=== PATIENT | male | born 2000 | race Caucasian/White ===

== ENCOUNTER 2021-03-21 02:55 | Emergency (ER) | payer OTHER, SELFPAY ==
[2021-03-21] VITALS (7 sets, daily range): BP systolic 107–145; BP diastolic 55–122; PULSE 62–102; RESP 16–19; TEMP 36.9–37; O2SAT 97–99; BMI 23.1
--- NOTE | 2021-03-21 03:24 | HMH.EDGENADL ---
ED Disposition Clinical Impression: Elbow dislocation Qualifiers: Encounter type: initial encounter Laterality: left Qualified Code(s): S53.105A - Unspecified dislocation of left ulnohumeral joint, initial encounter Disposition: Home, Self-Care Condition on Discharge: Good Instructions: How to Use a Sling, DI for Elbow Dislocation, How to Take Care of Your Splint, DI for Moderate Sedation Additional Instructions: Keep splint and sling on until seen by orthopedics. Ice 20 minutes 4-5 times per day. Percocet as needed for pain. Call Dr. Nava on Monday, orthopedics, for follow-up appointment, to be seen within 1 week. Additional instructions for CONTROLLED SUBSTANCES: You have been prescribed a medication that is a controlled substance. Controlled substances include pain medications known as opiates and sedative nerve medications known as benzodiazepines. Tramadol, fioricet, and gabapentin are also controlled substances. Some common opiates include: Codeine (such as Tylenol #3) Hydrocodone (Vicodin, Lortab, Lorcet, [place]) Oxycodone (Percocet, Percodan, Oxycodone, Oxy IR) Some common benzodiazepines include: Diazepam (Valium) Lorazepam (Ativan) Alprazolam (Xanax) Clonazepam (Klonopin) Oxazepam (Serax) All of these controlled substances are highly addictive and frequently abused. Misuse can and frequently does lead to addiction as well as overdose and . Medication should be stored in a locked cabinet or other secure storage unit. Do not store the medication in a motor vehicle. Short term supplies, 3 days or less, are prescribed because of the highly addictive nature of the medication. Any of the controlled substance medication NOT taken should be disposed of properly and NOT SAVED. The recommended method of disposing of unused medications is: Place the medicines in a sealable plastic bag. If the medicine is a solid, crush it or add water to dissolve it. Add something undesirable (cat litter, coffee grounds, etc.) Dispose of sealed bag in household trash Do not flush or pour unused medicines down a sink or drain. Controlled substances should not be shared, given away or sold. Because of the addictive nature and frequent abuse, these medications are sometimes stolen. These medications should be kept in a safe place where they cannot be stolen. Do not keep them in your car or purse. Lost or stolen prescriptions for controlled substances WILL NOT BE REFILLED in this emergency department, regardless of whether a police report was filed. Prescriptions: Oxycodone HCl/Acetaminophen [Percocet 5/325mg tablet] 1 tab PO Q6HP PRN #12 tab PRN Reason: Moderate To Severe Pain Transmission Status: Sent to [facility] Referrals: Provider,Referral, [Referring] - Yvon Nava JR, MD [Physician] - (call Monday) - Critical Care Critical Care Time: No Attestation: On 03/21/21, the high probability of a clinically significant, sudden or life threatening deterioration of the following system(s) required my full and direct attention, intervention and personal management. The time I documented below is in addition to time spent performing reported procedures but includes the following listed in this critical care notation. Medical Decision Making - Andre Inquiry Pt receiving controlled substance: Yes Andre was queried for this patient: Yes Risks and benefits of using a controlled substance: were discussed with pt by me Vital Signs: 03/21/21 02:56 03/21/21 04:21 03/21/21 04:38 Temperature 98.6 F Temperature Source Temporal Artery Scan Pulse Rate [Right] 97 H 102 H 92 H Respiratory Rate 19 16 18 Blood Pressure [Right Arm] 135/77 120/64 145/122 H Blood Pressure Mean [Right Arm] 96 82 129 02 Sat by Pulse Oximetry 99 98 98 Oxygen Delivery Method Room Air Orders (Tests/Meds): ED MEDICATIONS Discontinued Medications Generic Name Dose Route Start Last Ad
--- NOTE | 2021-03-21 03:27 | XR_ITS ---
PROCEDURE INFORMATION: Exam: XR Left Wrist Exam date and time: 03/21/2021 3:27 AM Age: 20 years old Clinical indication: Injury or trauma; Fall; Sprain or strain; Wrist; Left; Injury date: 03/21/2021; Additional info: Fall, arm extended unable to bend elbow pain in left arm from shoulder to hand TECHNIQUE: Imaging protocol: XR Left wrist. Views: 1 or 2 views. COMPARISON: CR XR FOREARM LT 2V 03/21/2021 3:39 AM FINDINGS: Bones/joints: Normal. Soft tissues: Normal. IMPRESSION: No acute findings.
--- NOTE | 2021-03-21 03:27 | XR_ITS ---
PROCEDURE INFORMATION: Exam: XR Left Shoulder Exam date and time: 03/21/2021 3:27 AM Age: 20 years old Clinical indication: Injury or trauma; Fall; Swelling (edema); Shoulder; Left; Injury date: 03/21/2021; Additional info: Fall, arm extended unable to bend at elbow TECHNIQUE: Imaging protocol: XR Left shoulder. Views: 2 or more views. COMPARISON: No relevant prior studies available. FINDINGS: Bones/joints: Normal. Soft tissues: Normal. IMPRESSION: No acute findings.
--- NOTE | 2021-03-21 03:27 | XR_ITS ---
PROCEDURE INFORMATION: Exam: XR Left Elbow Exam date and time: 03/21/2021 3:27 AM Age: 20 years old Clinical indication: Injury or trauma; Fall; Sprain or strain; Elbow; Left; Injury date: 03/21/2021; Additional info: Fall, arm extended pain elbow cant bend it TECHNIQUE: Imaging protocol: XR Left elbow. Views: 3 or more views. COMPARISON: CR XR HUMERUS LT 03/21/2021 3:36 AM FINDINGS: Bones/joints: There is dislocation of both the radius and ulna at the level of the elbow. No bony fragments are identified. Soft tissues: Normal. IMPRESSION: Posterior dislocation of the radius and ulna.
--- NOTE | 2021-03-21 03:27 | XR_ITS ---
PROCEDURE INFORMATION: Exam: XR Left Humerus Exam date and time: 03/21/2021 3:27 AM Age: 20 years old Clinical indication: Injury or trauma; Fall; Sprain or strain; Arm, upper; Left; Injury date: 03/21/2021; Additional info: Fall, arm extended TECHNIQUE: Imaging protocol: XR Left humerus. Views: 2 or more views. COMPARISON: CR XR SHOULDER LT MIN 2V 03/21/2021 3:31 AM FINDINGS: Bones/joints: Normal. Soft tissues: Normal. IMPRESSION: No acute findings.
--- NOTE | 2021-03-21 03:31 | XR_ITS ---
PROCEDURE INFORMATION: Exam: XR Left Forearm Exam date and time: 03/21/2021 3:31 AM Age: 20 years old Clinical indication: Injury or trauma; Fall; Sprain or strain; Arm, lower; Left; Injury date: 03/21/2021; Additional info: Fall with arm extended unable to bend elbow TECHNIQUE: Imaging protocol: XR Left forearm. Views: 2 views. COMPARISON: CR XR ELBOW LT MIN 3V 03/21/2021 3:37 AM FINDINGS: Bones/joints: Again identified is dislocation of the radius and ulna at the level of the elbow. No bony fractures are noted the remainder of the radius and ulna are intact. Soft tissues: Normal. IMPRESSION: Elbow dislocation.
--- NOTE | 2021-03-21 04:24 | XR_ITS ---
PROCEDURE INFORMATION: Exam: XR Left Elbow Exam date and time: 03/21/2021 4:24 AM Age: 20 years old Clinical indication: Pain; Elbow; Left; Additional info: Post reduction TECHNIQUE: Imaging protocol: XR Left elbow. Views: 1 or 2 views. COMPARISON: CR XR ELBOW LT MIN 3V 03/21/2021 3:37 AM FINDINGS: Bones/joints: Previously noted dislocation has been reduced successfully. Soft tissues: Normal. IMPRESSION: Status post successful elbow reduction.
--- NOTE | 2021-03-21 04:39 | PC.NURSE ---
pt's mother here. Updated her on pt's POC
== END 2021-03-21 05:04 | disposition home or self-care (01) ==
PROVIDERS: Emergency Provider Emergency Medicine; PCP Family Medicine
DX: S53.105A Unspecified dislocation of left ulnohumeral joint, initial encounter (principal); W03.XXXA Other fall on same level due to collision with another person, initial encounter; Y92.89 Other specified places as the place of occurrence of the external cause; J45.909 Unspecified asthma, uncomplicated
CPT/HCPCS: 24605; 29105; 73030; 73060; 73070; 73080; 73090; 73100; 96374; 96375; 99152; 99285; J2405

== ENCOUNTER → 2021-04-20 20:31 | Outpatient (CLI) | payer OTHER, SELFPAY | PROVIDERS: Visit Provider Nurse Practitioner Family | DX: Z20.822 Contact with and (suspected) exposure to COVID-19 (principal); J02.9 Acute pharyngitis, unspecified | CPT/HCPCS: C9803; U0003; U0005 ==